=== PATIENT | female | born 2000 | race African-American/Black ===

== ENCOUNTER 2021-07-08 14:48 | Emergency (ER) | payer OTHER, MEDICAID ==
[~2021-07-08] VITALS: Ht 172.7 cm; Wt 98.9 kg
[2021-07-08 15:16] LABS: ABSOLUTE BASOPHILS 0.1 thou/uL (0.0-0.2); ABSOLUTE EOSINOPHILS 0.3 thou/uL (0.0-0.7); ABSOLUTE MONOCYTES 1.3 thou/uL (0.0-1.2); ABSOLUTE NEUTROPHILS 12.2 thou/uL (1.6-8.1); BASOPHILS 0.9 %; EOSINOPHILS 1.7 %; HEMATOCRIT 32.6 % (37.0-47.0); HEMOGLOBIN 10.8 gm/dL (12.0-15.0); LYMPHOCYTES 12.7 %; MCH 27.8 pg (26.0-34.0); MCV 84.2 fL (80.0-100.0); MONOCYTES 8.1 %; MPV 8.4 fl. (7.2-11.1); NUCLEATED RBCS 0 /100WBC; PLATELET COUNT* 261 thou/uL (150-400); POLYS 76.6 %; RBC 3.87 mil/uL (4.20-5.00); RDW-CV 13.6 % (10.5-14.5); WBC 15.9 thou/uL (4.0-11.0)
[2021-07-08 15:35] LABS: URINE BILIRUBIN NEGATIVE (Negative); URINE BLOOD NEGATIVE (Negative); URINE CLARITY CLEAR; URINE COLOR YELLOW; URINE GLUCOSE-RANDOM NEGATIVE (Negative); URINE KETONES NEGATIVE (Negative); URINE LEUKOCYTES-REFLEX NEGATIVE (Negative); URINE NITRITE-REFLEX NEGATIVE (Negative); URINE PROTEIN NEGATIVE (Negative); URINE SPECIFIC GRAVITY >= 1.030 (1.005-1.030); URINE UROBILINOGEN 0.2 E.U./dl (0.2-1.0)
[2021-07-08 15:37] LABS: ALBUMIN 2.6 g/dL (3.4-5.0); CALCIUM 8.5 mg/dL (8.5-10.1); CREATININE 0.6 mg/dL (0.6-1.3); POTASSIUM 3.6 mmol/L (3.5-5.1); TOTAL BILIRUBIN 0.2 mg/dL (<0.1-1.0); TOTAL PROTEIN 6.7 g/dL (6.4-8.2)
[2021-07-08 16:25] VITALS: BP 109/30
--- NOTE | 2021-07-09 10:19 | EKG ---
[place] [address] ELECTROCARDIOGRAM REPORT Name: OVIDIO HOSKINSMIKEBabak Room: [facility]#: [id number] Admission: 07/08/21 Attend Phys: Discharge: 07/08/21 Date of : 00 Date of Service: 07/08/21 1453 Report #: [id number] THIS REPORT FOR: //name// [facility] ED Test Date: 2021-07-08 Test Time: 14:53:51 Pat Name: DEE HOSKINS Department: Room: Gender: F [employer]: : 2000 Requested By: Trevor Barger Order Number: [id number] MD: Ej Chamberlain Measurements Intervals [place] Rate: 96 P: 53 AR: 157 QRS: 52 QRSD: 69 T: 14 QT: 337 QTc: 426 Interpretive Statements Sinus rhythm No previous ECG available for comparison Electronically Signed On 07-09-2021 10:18:50 CHECK PROCESSOR by Ej Chamberlain [email or web address] <ELECTRONICALLY SIGNED> By: Ej Chamberlain MD, [facility] 07/09/21 1018 D: [id number] Ej Chamberlain MD, FACC /EPI
== END 2021-07-08 16:25 | disposition home or self-care (01) ==
LOC: M.ERS 14:48
PROVIDERS: Nurse Practitioner Psychiatric/Mental Health
DX: O26.893 Other specified pregnancy related conditions, third trimester (principal); R07.89 Other chest pain; R06.02 Shortness of breath; R11.0 Nausea; F41.9 Anxiety disorder, unspecified; R42 Dizziness and giddiness; Z3A.36 36 weeks gestation of pregnancy